=== PATIENT | female | born 1990 | race Caucasian/White ===

== ENCOUNTER 2019-05-13 20:52 | Emergency (ER) | payer OTHER ==
[2019-05-13] MEDS ORDERED: cefTRIAXone 1 GM in Premix Bag 1 BAG IV ONE (21:13)
[2019-05-13] MEDS ORDERED: Sodium Chloride 0.9% 1,000 ML IV ONE (21:13)
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
[2019-05-13 21:59] LABS: CHLORIDE,CL 104 mmol/L (98-107); SODIUM,NA 137 mmol/L (136-145)
[2019-05-13 22:37] VITALS: BP 103/57
== END 2019-05-13 22:36 | disposition home or self-care (01) ==
LOC: MW.ED 20:52
DX: O23.42 Unspecified infection of urinary tract in pregnancy, second trimester (principal); Z3A.19 19 weeks gestation of pregnancy; Z88.5 Allergy status to narcotic agent
CPT/HCPCS: 36415; 80053; 81001; 85025; 87086; 96365; 99283; J0696; J7040; 87088; 87186

== ENCOUNTER 2019-09-26 23:12 | Inpatient (IN) | payer OTHER ==
[2019-09-26] MEDS ORDERED: Ondansetron 4 MG/2 ML SDV IVPUSH PRN (23:37)
[2019-09-26] MEDS ORDERED: Carboprost Tromethamine 250 MCG/1 ML Amp IM PRN (23:37)
[2019-09-26] MEDS ORDERED: Methylergonovine 0.2 MG/1 ML Amp IM PRN (23:37)
[2019-09-26] MEDS ORDERED: Misoprostol 200 MCG Tab PO PRN (23:37)
[2019-09-26] MEDS ORDERED: Water For Irrigation,Sterile 1,000 ML Container IRR PRN (23:37)
[2019-09-26] MEDS ORDERED: Sodium Chloride 0.9% 10 ML Syringe FLUSH PRN (23:37)
[2019-09-26] MEDS ORDERED: Tranexamic Acid 1,000 MG in Sodium Chloride 0.9% 100 ML IV PRN (23:37)
[2019-09-26] MEDS ORDERED: Nalbuphine 10 MG/1 ML Vial IVPUSH PRN (23:37)
[2019-09-26] MEDS ORDERED: Sodium Chloride 0.9% 2.5 ML Syringe FLUSH PRN (23:37)
[2019-09-26] MEDS ORDERED: Butorphanol 1 MG/ML SDV IVPUSH PRN (23:37)
[2019-09-26] MEDS ORDERED: Lidocaine 1% 50 ML MDV INJECT PRN (23:37)
[2019-09-26] MEDS ORDERED: Sodium Chloride 0.9% 10 ML SDV IV PRN (23:37)
[2019-09-26] MEDS ORDERED: Oxytocin/0.9 % Sodium Chloride 30 UNIT/500 ML BAG IV SCH (23:45)
[2019-09-26] MEDS ORDERED: Lactated Ringers 1,000 ML IV SCH (23:45)
[2019-09-27] MEDS ORDERED: fentaNYL 100 MCG/2 ML SDV ONE (00:25)
[2019-09-27] MEDS ORDERED: Ropivacaine HCl/PF 100 ML ONE (00:25)
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
[2019-09-27] MEDS ORDERED: Witch Hazel Medicated Pads 40/Jar TOP PRN (02:21)
[2019-09-27] MEDS ORDERED: Docusate Sodium 100 MG Cap PO PRN (02:21)
[2019-09-27] MEDS ORDERED: Ibuprofen 400 MG Tab PO PRN (02:21)
[2019-09-27] MEDS ORDERED: Lanolin 100% Cream 7 GM Tube TOP PRN (02:21)
[2019-09-27] MEDS ORDERED: Ibuprofen 800 MG Tab PO PRN (02:21)
[2019-09-27] MEDS ORDERED: Bisacodyl 10 MG Supp RECTAL PRN (02:21)
[2019-09-27] MEDS ORDERED: Benzocaine/Menthol 20%-0.5% Spray 78 GM Cannister TOP PRN (02:21)
--- NOTE | 2019-09-27 02:29 | PCM.DEL ---
L & D Note - General Info Date of Service: 09/27/19 Mother's Due Date: 10/05/19 - Delivery Note Labor: Spontaneous Delivery Outcome: Livebirth Infant Delivery Method: Spontaneous Vaginal Delivery-Single Infant Delivery Mode: Spontaneous Presentation: Vertex Nuchal Cord: None Anesthesia Type: None Anesthetic: Lidocaine (Xylocaine) 1% Plain Local Anesthetic Volume: 1cc Amniotic Fluid Description: Meconium Stained Episiotomy Type: None Laceration: 1st Degree Suture type: Vicryl Suture size: 3-0 Placenta: Intact, Spontaneous Cord: 3 Vessels Estimated Blood Loss: 150 Resuscitation Needed: No Score 1 min: 8 Score 5 min: 9 Second Stage Interventions: Reports: Pushing, Knee Chest Position Delivery Comments (Free Text/Narrative):: of viable male, head delivered with good pushing, shoulders and body followed easily. Infant with spont cry handed to mother with RN at for evaluation. Delayed cord clamping, pitocin to IVF, cord clamped and cut by FOB. Cord blood collected. Placenta delivered grossly intact. Inspection noted left labial sidewall lac with repair with a 3-0 aspen. EBL 150cc. APGARS 8/9, Wt: pending bonding. Mom and baby stable - General Info Date of Service: 09/27/19 Admission Dx/Problem (Free Text): Patient Status Order with Admit Dx/Problem 09/26/19 23:37 Patient Status [ADT] Routine Admission Diagnosis/Problem Admission Diagnosis/Problem 09/27/19 02:13 28yo EDC 10/05/2019 38 6/7wks, come in active labor, Hx of , approved for . A+, RI, GBS neg. Functional Status: Reports: Pain Controlled, Tolerating Diet - Review of Systems General: Reports: No Symptoms HEENT: Reports: No Symptoms Pulmonary: Reports: No Symptoms Cardiovascular: Reports: No Symptoms Gastrointestinal: Reports: No Symptoms Genitourinary: Reports: No Symptoms Musculoskeletal: Reports: No Symptoms Skin: Reports: No Symptoms Neurological: Reports: No Symptoms Psychiatric: Reports: No Symptoms - Patient Data Lab Results Last 24 Hours: Laboratory Results - last 24 hr 09/26/19 09/26/19 Range/Units 23:50 23:50 WBC 19.05 H (4.0-11.0) K/uL RBC 3.60 L (4.30-5.90) M/uL Hgb 11.4 L (12.0-16.0) g/dL Hct 34.3 L (36.0-46.0) % MCV 95.3 (80.0-98.0) fL MCH 31.7 (27.0-32.0) pg MCHC 33.2 (31.0-37.0) g/dL RDW Std Deviation 46.8 (28.0-62.0) fl RDW Coeff of Ml 14 (11.0-15.0) % Plt Count 233 (150-400) K/uL MPV 10.00 (7.40-12.00) fL Nucleated RBC % 0.0 /100WBC Nucleated RBCs # 0 K/uL Blood Type A POSITIVE Antibody Screen NEGATIVE Med Orders - Current: Current Medications Acetaminophen (Tylenol Extra Strength) 500 mg PO Q4H PRN PRN Reason: Pain Acetaminophen (Tylenol Extra Strength) 1,000 mg PO Q4H PRN PRN Reason: Pain Benzocaine/Menthol (Dermoplast Pain Relief 20%-0.5% [place]) 78 gm TOP ASDIRECTED PRN PRN Reason: Perineal Comfort Measure Bisacodyl (Dulcolax) 10 mg RECTAL ONETIME PRN PRN Reason: Constipation Docusate Sodium (Colace) 100 mg PO BID PRN PRN Reason: Constipation Emollient Ointment (Lansinoh Hpa) 0 gm TOP ASDIRECTED PRN PRN Reason: Sore Nipples Ibuprofen (Motrin) 400 mg PO Q4H PRN PRN Reason: Pain Ibuprofen (Motrin) 800 mg PO Q6H PRN PRN Reason: Pain Witch Michelle (Tucks) 1 pad TOP ASDIRECTED PRN PRN Reason: comfort care Discontinued Medications Butorphanol Tartrate (Stadol) 1 mg IVPUSH Q1H PRN PRN Reason: Pain Last Admin: 09/27/19 00:13 Dose: 1 mg Carboprost Tromethamine (Hemabate Ds) 250 mcg IM ASDIRECTED PRN PRN Reason: Post Hemorrhage Fentanyl (Sublimaze) Confirm Administered Dose 100 mcg .ROUTE .[facility] ONE Stop: 09/27/19 00:26 Lactated Ringer's (Ringers, Lactated) 1,000 mls @ 150 mls/hr IV ASDIRECTED [facility] Last Admin: 09/26/19 23:54 Dose: 150 mls/hr Oxytocin/Sodium Chloride (Oxytocin 30 Unit/500 Ml-Ns) 30 unit in 500 mls @ 555 mls/hr IV TITRATE [facility] Tranexamic Acid 1,000 mg/ (Sodium Chloride) 110 mls @ 660 mls/hr IV ONETIME PRN PRN Reason: Bleeding Ropivacaine (Naropin 0.2%) Confirm Administered Dose 100 mls @ as directed .ROUTE .[facility] ONE Stop: 09/27/19 00:26 Lidocaine HCl (Xylocaine 1%) 50 ml INJECT ONETIME PRN PRN Reason: Laceration repair Methylergonovine Maleate (Methergine) 0.2 mg IM ASDIRECTED PRN PRN Reason: Post Hemorrhage Misoprostol (Cytotec) 200 mcg PO ONETIME PRN PRN Reason: Post Hemorrhage Nalbuphine HCl (Nubain) 10 mg IVPUSH Q1H PRN PRN Reason: Pain (severe 7-10) Ondansetron HCl (Zofran) 4 mg IVPUSH Q4H PRN PRN Reason: Nausea/Vomiting Sodium Chloride (Saline Flush) 10 ml FLUSH ASDIRECTED PRN PRN Reason: Keep Vein Open Sodium Chloride (Saline Flush) 2.5 ml FLUSH ASDIRECTED PRN PRN Reason: Keep Vein Open Sodium Chloride (Normal Saline) 10 ml IV ASDIRECTED PRN PRN Reason: IV Use Sterile Water (Sterile Water For Irrigation) 1,000 ml IRR ASDIRECTED PRN PRN Reason: delivery - Exam General: Alert, Oriented, Cooperative, No Acute Distress Lungs: Normal Respiratory Effort GI/Abdominal Exam: Soft, Non-Tender (Female) Exam: Normal External Exam, Normal Bimanual Exam, Vaginal Bleeding, Vaginal Tears (with repair) Back Exam: Normal Inspection, Full Range of Motion Extremities: Normal Inspection, Normal Range of Motion, Non-Tender, No Pedal Edema Skin: Warm, Dry, Intact Wound/Incisions: Healing Well Neurological: No New Focal Deficit, Normal Speech, Normal Tone, Strength Equal Bilateral, Sensation Intact Psy/Mental Status: Alert, Normal Affect, Normal Mood - Problem List & Annotations (1) Supervision of normal IUP (intrauterine ) in multigravida SNOMED Code(s): 096067132, 957325736, 471075719 Code(s): Z34.80 - ENCOUNTER FOR SUPRVSN OF NORMAL , UNSP TRIMESTER Status: Acute Priority: High Current Visit: Yes Qualifiers: Trimester: third trimester Qualified Code(s): Z34.83 - Encounter for supervision of other normal , third trimester (2) History of delivery SNOMED Code(s): 269329306 Code(s): Z98.891 - HISTORY OF UTERINE SCAR FROM PREVIOUS SURGERY Status: Acute Priority: High Current Visit: Yes (3) , delivered SNOMED Code(s): 759358858 Code(s): O34.219 - MATERNAL CARE FOR UNSP TYPE SCAR FROM PREVIOUS DEL Status: Acute Priority: High Current Visit: Yes - Problem List Review Problem List Initiated/Reviewed/Updated: Yes - My Orders Last 24 Hours: My Active Orders 09/26/19 23:37 Heart Tones [RC] CONTINUOUS Non Stress Test [RC] PER UNIT ROUTINE Vaginal Exam [RC] PRN Vital Signs [RC] PER UNIT ROUTINE 09/26/19 23:50 RAPID PLASMA REAGIN, QUANT [REF] Routine 09/27/19 02:21 May Shower [RC] ASDIRECTED Up ad Sandy [RC] ASDIRECTED Vital Signs [RC] PER UNIT ROUTINE Acetaminophen [Tylenol Extra Strength] 1,000 mg PO Q4H PRN Acetaminophen [Tylenol Extra Strength] 500 mg PO Q4H PRN Benzocaine/Menthol [Dermoplast Pain Relief 20%-0.5% [place]] 78 gm TOP ASDIRECTED PRN Docusate Sodium [Colace] 100 mg PO BID PRN Ibuprofen [Motrin] 400 mg PO Q4H PRN Ibuprofen [Motrin] 800 mg PO Q6H PRN Lanolin [Lansinoh HPA] See Dose Instructions TOP ASDIRECTED PRN Witch Michelle [Tucks] 1 pad TOP ASDIRECTED PRN bisacodyL [Dulcolax] 10 mg RECTAL ONETIME PRN Assess Lochia [WOMSER] Per Unit Routine Assess Uterine Involution [WOMSER] Per Unit Routine Peripheral IV Discontinue [OM.PC] Routine Resuscitation Status Routine 09/27/19 02:23 Patient Status [ADT] Routine 09/27/19 Breakfast Regular Diet [DIET] - Plan Plan:: Labor A: 28yo EDC 10/05/2019 38 6/7wks, come in active labor, Hx of , approved for . A+, RI, GBS neg. P: Admit, Dr Cummings and OR team called due to . Anticipate . Delivery A: of viable male, APGARS 8/9, Wt: pending bonding, 1 degee left sidewall lac with repair, EBL 150cc, Stable P: Routine pp plan of care
[2019-09-27] MEDS: Acetaminophen 500 MG Tab PO PRN ×3 (09:00→20:18)
[2019-09-28] MEDS: Acetaminophen 500 MG Tab PO PRN (05:23)
[2019-09-28 08:11] VITALS: BP 103/53; PULSE 115
--- NOTE | 2019-09-28 09:15 | PCM.DCSUM1 ---
Discharge Summary - Hospital Course Free Text/Narrative:: Discharge home with . Follow up 6 weeks for . Diagnosis: Stroke: No Modified [place] Scale: No Symptoms at All Modified [place] Scale Score: 0 - Discharge Data Discharge Date: 09/28/19 Discharge Disposition: Home, Self-Care 01 Condition: Good - Referral to Home Health Primary Care Physician: PCP Unknown - Discharge Diagnosis/Problem(s) (1) Supervision of normal IUP (intrauterine ) in multigravida SNOMED Code(s): 584716332, 559523068, 575020901 ICD Code: Z34.80 - ENCOUNTER FOR SUPRVSN OF NORMAL , UNSP TRIMESTER Status: Acute Priority: High Current Visit: Yes Qualifiers: Trimester: third trimester Qualified Code(s): Z34.83 - Encounter for supervision of other normal , third trimester (2) History of delivery SNOMED Code(s): 967618759 ICD Code: Z98.891 - HISTORY OF UTERINE SCAR FROM PREVIOUS SURGERY Status: Acute Priority: High Current Visit: Yes (3) , delivered SNOMED Code(s): 897811141 ICD Code: O34.219 - MATERNAL CARE FOR UNSP TYPE SCAR FROM PREVIOUS DEL Status: Acute Priority: High Current Visit: Yes - Patient Instructions Diet: Usual Diet as Tolerated Activity: As Tolerated, No Strenuous Activities, Rest and Relax Today Driving: May Drive Today Showering/Bathing: May Shower Notify Provider of: Fever, Increased Pain, Swelling and Redness, Nausea and/or Vomiting Other/Special Instructions: Discharge home with . Follow up 6 weeks for . - Discharge Plan *PRESCRIPTION DRUG MONITORING PROGRAM REVIEWED*: Not Applicable *COPY OF PRESCRIPTION DRUG MONITORING REPORT IN PATIENT DONITA: Not Applicable Prescriptions/Med Rec: Ibuprofen [Motrin] 800 mg PO Q6H PRN #90 tablet PRN Reason: Pain Home Medications: Home Meds Cephalexin [Keflex] 500 mg PO TID 7 Days #21 capsule 05/13/19 [Rx] Digestive 8/L.acidoph/Pectin [Digestive Enzymes Tablet] 1 tab PO DAILY 09/01/19 [History] L.acidoph,Paracasei, B.lactis [Probiotic] 1 each PO DAILY 09/01/19 [History] Vits #93/Iron Fum/FA [ Formula Tablet] 1 each PO DAILY [History] Ibuprofen [Motrin] 800 mg PO Q6H PRN #90 tablet 09/28/19 [Rx] Oxygen Therapy Mode: Room Air - Discharge Summary/Plan Comment DC Time >30 min.: Yes - General Info Date of Service: 09/28/19 Admission Dx/Problem (Free Text: Patient Status Order with Admit Dx/Problem 09/26/19 23:37 Patient Status [ADT] Routine Admission Diagnosis/Problem Admission Diagnosis/Problem 09/27/19 02:13 28yo EDC 10/05/2019 38 6/7wks, come in active labor, Hx of , approved for . A+, RI, GBS neg. Functional Status: Reports: Pain Controlled, Tolerating Diet, Ambulating, Urinating - Review of Systems General: Reports: No Symptoms HEENT: Reports: No Symptoms Pulmonary: Reports: No Symptoms Cardiovascular: Reports: No Symptoms Gastrointestinal: Reports: No Symptoms Genitourinary: Reports: No Symptoms Musculoskeletal: Reports: No Symptoms Skin: Reports: No Symptoms Neurological: Reports: No Symptoms Psychiatric: Reports: No Symptoms - Patient Data Vitals - Most Recent: Last Vital Signs Temp 36.4 C 09/28/19 08:00 Pulse 115 H 09/28/19 08:00 Resp 18 09/28/19 08:00 BP 103/53 L 09/28/19 08:00 Pulse Ox 95 09/28/19 08:00 Weight - Most Recent: 84.822 kg Med Orders - Current: Current Medications Acetaminophen (Tylenol Extra Strength) 500 mg PO Q4H PRN PRN Reason: Pain Last Admin: 09/27/19 14:23 Dose: 500 mg Acetaminophen (Tylenol Extra Strength) 1,000 mg PO Q4H PRN PRN Reason: Pain Last Admin: 09/28/19 05:23 Dose: 1,000 mg Benzocaine/Menthol (Dermoplast Pain Relief 20%-0.5% [place]) 78 gm TOP ASDIRECTED PRN PRN Reason: Perineal Comfort Measure Last Admin: 09/27/19 04:39 Dose: 78 gm Bisacodyl (Dulcolax) 10 mg RECTAL ONETIME PRN PRN Reason: Constipation Docusate Sodium (Colace) 100 mg PO BID PRN PRN Reason: Constipation Emollient Ointment (Lansinoh Hpa) 0 gm TOP ASDIRECTED PRN PRN Reason: Sore Nipples Last Admin: 09/27/19 04:39 Dose: 7 gm Ibuprofen (Motrin) 400 mg PO Q4H PRN PRN Reason: Pain Last Admin: 09/27/19 08:58 Dose: 400 mg Ibuprofen (Motrin) 800 mg PO Q6H PRN PRN Reason: Pain Last Admin: 09/28/19 08:35 Dose: 800 mg Witch Michelle (Tucks) 1 pad TOP ASDIRECTED PRN PRN Reason: comfort care Last Admin: 09/27/19 04:38 Dose: 1 pad Discontinued Medications Butorphanol Tartrate (Stadol) 1 mg IVPUSH Q1H PRN PRN Reason: Pain Last Admin: 09/27/19 00:13 Dose: 1 mg Carboprost Tromethamine (Hemabate Ds) 250 mcg IM ASDIRECTED PRN PRN Reason: Post Hemorrhage Fentanyl (Sublimaze) Confirm Administered Dose 100 mcg .ROUTE .[employer] ONE Stop: 09/27/19 00:26 Lactated Ringer's (Ringers, Lactated) 1,000 mls @ 150 mls/hr IV ASDIRECTED [facility] Last Admin: 09/26/19 23:54 Dose: 150 mls/hr Oxytocin/Sodium Chloride (Oxytocin 30 Unit/500 Ml-Ns) 30 unit in 500 mls @ 555 mls/hr IV TITRATE [facility] Last Admin: 09/27/19 01:42 Dose: 555 mls/hr Tranexamic Acid 1,000 mg/ (Sodium Chloride) 110 mls @ 660 mls/hr IV ONETIME PRN PRN Reason: Bleeding Ropivacaine (Naropin 0.2%) Confirm Administered Dose 100 mls @ as directed .ROUTE .[facility] ONE Stop: 09/27/19 00:26 Lidocaine HCl (Xylocaine 1%) 50 ml INJECT ONETIME PRN PRN Reason: Laceration repair Last Admin: 09/27/19 01:50 Dose: 50 ml Methylergonovine Maleate (Methergine) 0.2 mg IM ASDIRECTED PRN PRN Reason: Post Hemorrhage Misoprostol (Cytotec) 200 mcg PO ONETIME PRN PRN Reason: Post Hemorrhage Nalbuphine HCl (Nubain) 10 mg IVPUSH Q1H PRN PRN Reason: Pain (severe 7-10) Ondansetron HCl (Zofran) 4 mg IVPUSH Q4H PRN PRN Reason: Nausea/Vomiting Sodium Chloride (Saline Flush) 10 ml FLUSH ASDIRECTED PRN PRN Reason: Keep Vein Open Sodium Chloride (Saline Flush) 2.5 ml FLUSH ASDIRECTED PRN PRN Reason: Keep Vein Open Sodium Chloride (Normal Saline) 10 ml IV ASDIRECTED PRN PRN Reason: IV Use Sterile Water (Sterile Water For Irrigation) 1,000 ml IRR ASDIRECTED PRN PRN Reason: delivery - Exam General: Reports: Alert, Oriented, Cooperative, No Acute Distress Lungs: Reports: Clear to Auscultation, Normal Respiratory Effort Cardiovascular: Reports: Regular Rate, Regular Rhythm, No Murmurs GI/Abdominal Exam: Soft, Non-Tender (Female) Exam: Deferred, Vaginal Bleeding Rectal (Female) Exam: Deferred Back Exam: Reports: Full Range of Motion Extremities: Normal Range of Motion, No Pedal Edema, Other (C/O left hip pain, advised stretches and ibuprofen.) Skin: Reports: Warm, Dry, Intact Wound/Incisions: Reports: Healing Well Neurological: Reports: No New Focal Deficit, Normal Speech, Normal Tone, Strength Equal Bilateral, Sensation Intact Psy/Mental Status: Reports: Alert, Normal Affect, Normal Mood
== END 2019-09-28 11:45 | disposition home or self-care (01) | DRG 807 ==
LOC: MW.OB 23:12 → MW.OBCHECK 23:12 → MW.OB 23:37 → MW.OBCHECK 23:37 → OBSVTOIN 09-27 01:40 → MW.OB 09-27 05:23
PROVIDERS: ADMIT Obstetrics & Gynecology; ATTEND Obstetrics & Gynecology
PROC: 10E0XZZ Delivery of Products of Conception, External Approach (ICD-10-PCS; principal; 2019-09-27)
PROC: 0HQ9XZZ Repair Perineum Skin, External Approach (ICD-10-PCS; 2019-09-27)
DX: O34.219 Maternal care for unspecified type scar from previous cesarean delivery (principal); Z37.0 Single live birth; O77.0 Labor and delivery complicated by meconium in amniotic fluid; O70.0 First degree perineal laceration during delivery; Z3A.38 38 weeks gestation of pregnancy
CPT/HCPCS: 36415; 59025; 59409; 85027; 86592; 86593; 86850; 86900; 86901; A9270-GY; J0595; J2001; J2405; J2590; J2795; J3010; J7120

== ENCOUNTER 2020-05-07 21:27 | Observation (INO) | payer OTHER ==
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
--- NOTE | 2020-05-07 22:50 | CR ---
INDICATION: Pain after trampoline injury. COMPARISON: None available. TECHNIQUE: AP and lateral views of the thoracic spine were obtained for a total of two views. FINDINGS: There is no sign of fracture or subluxation. The intervertebral discs are normal in height. The vertebral bodies are normal in height and are in anatomic alignment. The visualized portions of the chest are normal in appearance. IMPRESSION: Normal thoracic spine. Dictated by Gabo Cai MD @ May 07 2020 10:47PM Signed by Dr. Gabo Cai @ May 07 2020 10:48PM
[2020-05-07] MEDS ORDERED: Ibuprofen 600 MG Tab PO ONE (23:13)
[2020-05-07] MEDS ORDERED: Ibuprofen 600 MG Tab ONE (23:14)
[2020-05-07] MEDS ORDERED: Sodium Chloride 0.9% 2.5 ML Syringe FLUSH PRN (23:45)
[2020-05-07] MEDS ORDERED: Sodium Chloride 0.9% 10 ML Syringe FLUSH PRN (23:45)
[2020-05-08 00:07] LABS: CARBON DIOXIDE,CO2 27.2 mmol/L (21.0-32.0); POTASSIUM,K 3.8 mmol/L (3.5-5.1)
[2020-05-08] MEDS ORDERED: Sodium Chloride 0.9% 1,000 ML IV ONE ×2 (00:29→01:58)
--- NOTE | 2020-05-08 01:06 | CT ---
INDICATION: Trampoline injury, 2 syncopal episodes and ER TECHNIQUE: CT head without contrast. COMPARISON: None FINDINGS: CSF spaces: Within normal limits for age. Brain parenchyma: The huizar-white differentiation is normal. No sign of mass, hemorrhage, or midline shift. Skull base and calvarium: The visualized paranasal sinuses and mastoid air cells demonstrate no acute or significant findings. The visualized orbits are grossly unremarkable. No skull fractures. IMPRESSION: Unremarkable noncontrast head CT. Please note that all CT scans at this facility use dose modulation, iterative reconstruction, and/or weight-based dosing when appropriate to reduce radiation dose to as low as reasonably achievable. Dictated by Kristy Gee MD @ May 08 2020 1:05AM Signed by Dr. Kristy Gee @ May 08 2020 1:05AM
[2020-05-08] MEDS ORDERED: Acetaminophen/HYDROcodone 325-5 MG Tab PO ONE (02:15)
[2020-05-08] MEDS ORDERED: oxyCODONE 5 MG Tab PO PRN (05:22)
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
--- NOTE | 2020-05-08 11:04 | CT ---
CT cervical spine Technique: Multiple axial sections were obtained from above C1 inferiorly to the mid T5 level. Reconstructed sagittal and coronal images were reviewed. Comparison: No prior cervical spine imaging is available. Findings: Vertebral body heights and disc spaces are preserved. No central canal stenosis or bony neural foraminal stenosis is seen. Fracture is identified within the right lamina of C6 which extends into the apophyseal joint. Apophyseal joint is disrupted and widened. Posterior apophyseal joint is displaced posteriorly. No left-sided fracture is seen. No additional cervical spine fracture is appreciated. No abnormal subluxation seen of the vertebral bodies. Impression: 1. Fracture involving the right lamina of C6. Fracture line extends into and disrupts the right apophyseal joint at C6-7. Posterior apophyseal joint of C6 is displaced posteriorly with widening of the apophyseal joint. 2. No left-sided fracture is noted at C6. 3. No additional abnormality is appreciated on CT study of the cervical spine. Diagnostic code #5 This report was dictated in MDT
[2020-05-08] MEDS ORDERED: Ibuprofen 600 MG Tab PO PRN (11:12)
[2020-05-08 11:59] VITALS: BP 101/62; PULSE 82
== END 2020-05-08 14:10 | disposition home or self-care (01) ==
LOC: MW.ED 21:27 → MW.MS 05-08 02:08
PROVIDERS: ADMIT Internal Medicine; ATTEND Internal Medicine
DX: R55 Syncope and collapse (principal); S12.500A Unspecified displaced fracture of sixth cervical vertebra, initial encounter for closed fracture; Z20.828 Contact with and (suspected) exposure to other viral communicable diseases; Z88.0 Allergy status to penicillin; Z88.5 Allergy status to narcotic agent; Z88.1 Allergy status to other antibiotic agents; W09.8XXA Fall on or from other playground equipment, initial encounter
CPT/HCPCS: 36415; 51702; 70450; 72070; 72125; 80053; 84703; 85025; 87635; 93005; 96360; 96361; 99285; A9270; G0378; J7030; 99291; U0002